=== PATIENT | male | born 1950 | race Caucasian/White ===

== ENCOUNTER 2017-05-25 06:36 | Inpatient (IN) ==
--- NOTE | 2017-05-20 12:40 | EKG Report ---
Stationary ECG Study [facility] Test Date: 05/20/2017 12:40:51 PM Pat Name: MARCY WHITE Department: Room: Gender: M Bull Driver: IRENA OBOTH : 1950 Requested by: Ran Booth Order Number: [id number] Reading MD: ROOPA VENEGAS Intervals [place] Rate: 62 P: 52 VA: 164 QRS: 32 QRSD: 95 T: 79 QT: 383 QTc: 388 Interpretive Statements SINUS RHYTHM Electronically Signed On 05-23-17 18:24:08 CDT by ROOPA VENEGAS [email or web address]
[2017-05-20 12:45] LABS: Basophils # 0.1 10*3/uL (0.0-0.2); Basophils % 0.7 % (0.0-0.8); Eosinophils # 0.2 10*3/uL (0.0-0.87); Eosinophils % 2.1 % (0.00-10.9); Hematocrit 42.8 VOL% (42.0-52.0); Hemoglobin 14.5 GM/DL (14.0-18.0); Immature Granulocytes % 0.2 %; Immature Granulocytes Absolute 0.02 #; Lymphocytes # 2.6 10*3/uL (1.4-4.0); Lymphocytes % 30.8 % (21.2-54.2); Mean Corpuscular HGB Conc 33.9 GM/DL (32-36); Mean Corpuscular Hemoglobin 29 PG (27-34); Mean Corpuscular Volume 86.6 FL (87-102); Monocytes # 0.8 10*3/uL (0.11-0.8); Monocytes % 9.3 % (1.7-12.7); Neutrophils # 4.7 10*3/uL (1.4-7.4); Neutrophils % 56.9 % (38.7-73.9); Platelet Count 186 T/CUMM (130-400); Red Blood Count 4.94 MC/CUMM (3.8-5.5); Red Cell Distribution Width 13.4 % (9.3-17.3); White Blood Count 8.3 T/CUMM (4-12)
[2017-05-20 13:11] LABS: Albumin 3.8 G/DL (3.4-5.0); Bilirubin,Total 0.5 MG/DL (0.2-1.0); Calcium 8.9 MG/DL (8.5-10.1); Osmolality,Calculated 281.4 MOS/KG (273-304); Potassium 4.2 MMOL/L (3.5-5.1); Total Protein 7.2 G/DL (6.4-8.3)
[2017-05-25] MEDS ORDERED: SODIUM CHLORIDE 0.9% 100 ML IV ONE (07:22)
[2017-05-25] MEDS ORDERED: ceFAZolin 1,000 MG VIAL ONE (07:22)
[2017-05-25] MEDS ORDERED: LACTATED RINGERS 1,000 ML IV SCH ×2 (07:30→11:30)
[2017-05-25] MEDS ORDERED: TISSUE ADHESIVE 1 EACH APPLICATOR TOP ONE (07:36)
[2017-05-25] MEDS ORDERED: HEPARIN 5,000 UNIT/1 ML VIAL ONE ×3 (07:36→11:58)
[2017-05-25] MEDS ORDERED: VANCOMYCIN 500 MG VIAL ONE ×2 (07:37→11:58)
--- NOTE | 2017-05-25 08:27 | History and Physical Update ---
History and Physical Update - History and Physical H&P was reviewed, the patient examined and there: are no changes in the patients condition since last H&P was completed.
[2017-05-25] MEDS ORDERED: ONDANSETRON 4 MG/2 ML VIAL ONE ×2 (09:01→13:44)
[2017-05-25] MEDS ORDERED: ETOMIDATE 20 MG/10 ML VIAL IV ONE ×3 (09:01→13:43)
[2017-05-25] MEDS ORDERED: ROCURONIUM 100 MG/10 ML VIAL IV ONE ×2 (09:01→11:30)
[2017-05-25] MEDS ORDERED: GLYCOPYRROLATE 0.4 MG/2 ML VIAL ONE ×2 (09:01→11:30)
[2017-05-25] MEDS ORDERED: PROTAMINE SULFATE 50 MG/5 ML VIAL IV ONE ×2 (09:01→11:30)
[2017-05-25] MEDS ORDERED: PHENYLEPHRINE 50 MG/5 ML VIAL ONE ×2 (09:01→11:30)
[2017-05-25] MEDS ORDERED: NEOSTIGMINE 10 MG/10 ML VIAL ONE ×2 (09:01→11:30)
[2017-05-25] MEDS ORDERED: PROPOFOL 200 MG/20 ML VIAL IV ONE ×2 (09:01→11:29)
[2017-05-25] MEDS ORDERED: LIDOCAINE 1% 5 ML VIAL ONE (09:01)
[2017-05-25] MEDS ORDERED: ONDANSETRON 4 MG/2 ML VIAL IV PRN ×2 (10:44→11:10)
[2017-05-25] MEDS ORDERED: NALOXONE 0.4 MG/ML VIAL IV PRN (10:44)
[2017-05-25] MEDS ORDERED: GLUCAGON 1 MG VIAL IM PRN (10:44)
[2017-05-25] MEDS ORDERED: PROMETHAZINE 25 MG/1 ML VIAL IM PRN (10:44)
[2017-05-25] MEDS ORDERED: DEXTROSE 50% 25 GM/50 ML SYRINGE IV PRN (10:44)
[2017-05-25] MEDS ORDERED: oxyCODONE/ACETAMINOPHEN 5-325 MG TABLET PO PRN ×2 (10:44)
[2017-05-25] MEDS ORDERED: DOPamine 800 MG/250 ML PREMIX IV PRN (10:44)
--- NOTE | 2017-05-25 10:55 | Operative Note ---
Date of procedure: 05/25/17 Procedure: Dr. Booth operative report Kehinde Mendes. Surgeon: Isaura Anesthesia:t arm and general endotracheal Preoperative diagnosis: High-grade left carotid stenosis with ulcerated plaque Postoperative diagnosis: Same Procedure: Left carotid endarterectomy with a bovine pericardial patch Indications for the procedure: Straight a 66-year-old man is been found to have basically bilateral high-grade stenosis of the internal carotid arteries worse on the left he is right-hand dominant I have offered left carotid endarterectomy I have explained the alternatives risks and complications and he understands and accepts Description of the procedure: After the induction of general endotracheal anesthesia the patient is placed in supine position his neck modestly extended and turned to the right left neck is prepped with ChloraPrep and draped in the usual fashion incision is made in a skin crease below the angle of the mandible and carried into the subplatysmal space dissection carried out along the anterior border of the sternocleidomastoid muscle the internal jugular vein is identified anterior facial vein is doubly ligated hemoclipped and divided I then dissected along the anterior aspect of the internal jugular vein locating the common carotid artery it is controlled with a maxi vessel loop and the patient received 5000 units of intravenous heparin dissection is continued along the common carotid past the diseased bifurcation to the more normal distal internal and external carotid arteries there is modest kinking of the internal carotid just at the end of the plaque I gently control the artery above this with a vessel loop and use Vesseloops on the external and superior thyroid as well with adequate anticoagulation Vesseloops were brought up and a longitudinal arteriotomy was made from the common carotid through the diseased bifurcation to the more normal distal internal carotid artery there is reasonable backbleeding and in-line Giordano-Inahara shunt was placed into the internal carotid artery allowed to backflush then placed in the common carotid to reestablish flow. There was indeed an ulcerated highly stenotic plaque at the origin of the internal carotid artery standard endarterectomy was carried out removing the diseased intima and media from the carotid bifurcation it feathered out very well on both internal and external carotid arteries and the common loose flaps of medial removed under loupe magnification and the endarterectomized segment was flushed with heparinized saline bovine pericardial patch is used to close the arteriotomy removing the shunt and appropriate time backflushing internal and external carotid arteries and flushing again with heparinized saline with the arteriotomy closed flow was reestablished from the common carotid into the external and then restored into the internal carotid artery. The kinking has resolved with the use of the patch the hemostasis was reasonable heparin was reversed with 25 mg of protamine there is good flow by Doppler in both internal and external carotid arteries neck is irrigated with vancomycin pledget of Surgicel was placed over the arteriotomy quarter inch Jeremías drain is placed brought out through the midportion incision incisions closed with 3-0 Monocryl on the platysma and skin clips on the skin. Blood loss estimated at 100 cc sponge needle and his counts correct and the patient was taken to recovery in stable condition Surgeon / Physician: Ran Booth Results - Labs CBC & BMP: 05/20/17 12:35 05/20/17 12:35 Discharge Plan - Discharge Medications No Action Aspirin [Ecotrin] 325 mg PO DAILY Omeprazole 20 mg PO DAILY NIFEdipine [Nifedipine ER] 30 mg PO DAILY Furosemide Tab [Lasix Tab] 20 mg PO DAILY Losartan Potassium [Cozaar] 100 mg PO DAILY Carvedilol [Coreg] 6.25 mg PO BID Atorvastatin [Lipitor] 20 mg PO DAILY - Follow Up or Referral - Forms/Instructions
[2017-05-25] MEDS ORDERED: DEXAMETHASONE 4 MG/1 ML VIAL ONE (10:59)
[2017-05-25] MEDS ORDERED: HYDROmorphone 2 MG/1 ML VIAL IV PRN (11:10)
[2017-05-25] MEDS ORDERED: DESFLURANE 1 UNIT/15 MINUTE INH ONE (11:29)
[2017-05-25] MEDS ORDERED: SODIUM CHLORIDE 0.9% 250 ML IV ONE (11:30)
[2017-05-25] MEDS ORDERED: fentaNYL 100 MCG/2 ML VIAL ONE ×2 (11:31→13:42)
[2017-05-25] MEDS ORDERED: HEPARIN 10,000 UNIT/10 ML VIAL ONE (11:31)
[2017-05-25] MEDS ORDERED: MIDAZOLAM 2 MG/2 ML VIAL ONE (11:31)
[2017-05-25] MEDS: DEXTRAN-40 10% /NS 500 ML IV SCH (11:55)
[2017-05-25] MEDS: DEXAMETHASONE INJ 10 MG in SODIUM CHLORIDE 0.9% 50 ML IV SCH (12:27)
--- NOTE | 2017-05-25 13:11 | CT Report ---
CT head/brain wo con Indication: Carotid endarterectomy Comparison: CT angiogram head dated March 30, 2017 Technique: Multiple axial tomographic images of the brain were obtained without the use of intravenous contrast. Findings: Midline structures are nondisplaced. There is no convincing evidence of acute intracranial hemorrhage . No convincing evidence of hydrocephalus. Mild global volume loss present. Mild periventricular and subcortical hypoattenuation noted which is nonspecific but consistent with chronic microvascular ischemic change. Demyelinating process and vasculitis less likely considerations. Old lacunar infarcts of bilateral caudate heads as well as the left subinsular region. Small mucous retention cyst within the right maxillary sinus. Mucosal thickening within the ethmoid air cells.. Atherosclerotic calcifications demonstrated. IMPRESSION: No acute intracranial abnormality demonstrated. Probable chronic microvascular ischemic change and volume loss. Old lacunar infarcts of bilateral caudate heads as well as the left subinsular region. The CT exam was performed using one or more of the following dose reduction techniques: Automated exposure control, adjustment of the mA and/or kV according to patient size, or use of iterative reconstruction technique. PROCEDURE INTERPRETED AT [facility] DEPARTMENT OF RADIOLOGY Final Report Signed by: Dr Ky Somers
[2017-05-25 13:27] LABS: ABG Base Excess -4.6 MMOL/L (-2.5-2.5); ABG HCO3 20.6 MMOL/L (20-26); ABG PCO2 56.1 MM HG (35-48); ABG PH 7.239 (7.35-7.45); ABG PO2 91.6 MM HG (80-95); ABG TCO2 21.3 MMOL/L (23-27)
[2017-05-25] MEDS ORDERED: NITROPRUSSIDE 50 MG/2 ML VIAL ONE ×2 (13:34→13:59)
[2017-05-25] MEDS ORDERED: NITROPRUSSIDE 50 MG/2 ML VIAL IV PRN (13:37)
[2017-05-25] MEDS ORDERED: SEVOFLURANE 1 UNIT/15 MINUTE INH ONE (13:42)
[2017-05-25] MEDS ORDERED: HYDROmorphone 2 MG/1 ML VIAL ONE (13:43)
[2017-05-25] MEDS: HYDROmorphone 2 MG/1 ML VIAL IV PRN ×4 (13:46→22:10)
--- NOTE | 2017-05-25 13:55 | XRay Report ---
XR chest 1V portable Indication: Postop SOB Comparison: Chest x-ray dated February 06, 2013 Technique: Single frontal view of the chest. Findings: Continued cardiomegaly status post sternotomy. There is a nonspecific reticular pattern throughout the bilateral lungs suspicious for interstitial pulmonary edema, interstitial pneumonia, or other interstitial lung disease. Interstitial pulmonary edema/CHF favored. Linear right midlung atelectasis/scarring. Visualized osseous and surrounding soft tissue structures appear grossly unchanged. IMPRESSION: As above. PROCEDURE INTERPRETED AT [facility] DEPARTMENT OF RADIOLOGY Final Report Signed by: Dr Ky Somers
[2017-05-25] MEDS ORDERED: NITROPRUSSIDE 100 MG in DEXTROSE 5% 246 ML IV SCH (14:00)
[2017-05-25] MEDS ORDERED: ONDANSETRON 4 MG/2 ML VIAL IV ONE (14:59)
[2017-05-25] MEDS: LACTATED RINGERS 1,000 ML IV SCH (15:16)
[2017-05-25 15:37] LABS: Apearance,Urine CLEAR (Clear); Bilirubin,Urine Negative (Negative); Blood, Urine Small mg/dL (Negative); Glucose,Urine (UA) Negative (Negative); Hyaline Casts,Urine 4 /LPF (0-3); Ketones,Urine Negative (Negative); Mucus,Urine Occasional /LPF (Occasional); Nitrite,Urine Negative (Negative); Protein,Urine Negative; RBC,Urine 13 /HPF (0-4); Urine Color Yellow (Yellow); Urine Specific Gravity 1.017 (1.001-1.035); Urine Urobilinogen < 2.0 EU/DL (0.2-1.0); WBC,Urine 2 /HPF (0-6)
[2017-05-25] MEDS ORDERED: LORazepam 2 MG/1 ML VIAL IV ONE ×2 (15:37→16:26)
[2017-05-25] MEDS ORDERED: LORazepam 2 MG/1 ML VIAL ONE (15:40)
--- NOTE | 2017-05-25 17:52 | Operative Note ---
Date of procedure: 05/25/17 Procedure: Dr. Booth operative report Kehinde Mendes. Surgeon: Leobardo Anesthesia: Michael general endotracheal Preoperative diagnosis: Post left carotid endarterectomy with evidence of left brain CVA Postoperative diagnosis: Same Procedure: Urgent return to OR with exploration of left carotid endarterectomy Indications for the procedure: Mr. Mendes is 66-year-old man had just undergone an uneventful appearing left carotid endarterectomy had been taken to recovery room in recovery room was noted to have full function of the right arm and speech not responding well vital signs were otherwise normal he had a palpable superficial temporal pulse no hematoma but I felt a reexploration of the artery urgently was indicated I discussed this with his and other family members and recommended a reexploration and a understood and agreed Description of the procedure patient return to the operating room placed in supine position under general endotracheal anesthesia the neck modestly extended and turned to the right the left neck was prepped with chlorhexidine type prepped draped in standard fashion the Wall drain was removed skin jake removed Monocryl suture and the platysma was removed and the neck was irrigated there was minimal hematoma no active bleeding the arteriotomy closure looked very good initial exam was Doppler indicated very good flow in the internal and external carotid arteries and common carotid artery I controlled the internal/external and common carotid arteries Vesseloops the patient had received 5000 units of heparin again 1 2 arteriotomy was made there was good backbleeding from the internal and external I used a #3 Magda and gently placed it into the distal internal carotid artery without difficulties approximately 10-15 cm this was brought back with a return of no debris or clot and no evidence of difficulty with the passage of the Magda catheter. Again there was good backbleeding from the internal carotid artery I then used a 3 3-1 /2 and 4 coronary dilator gently probed through the anastomosis into the distal internal carotid and found no obstructions and continued excellent back bleeding from the external carotid was likewise probed with a 3 coronary dilator and passed without difficulty with good backbleeding flushed again with heparinized saline flush the common carotid close the arteriotomy with 5-0 Prolene suture and then restored flow from the common into the external and then returned to the internal carotid artery hemostasis looked good heparin was not reversed irrigated with vancomycin and local anesthetic placed to Surgicel pledget closed over quarter inch Jeremías drain with a running 3-0 Monocryl in the platysma skin clips on the skin recurrent blood clots is 100 cc or less sponge needle and his counts are correct and the patient taken to CT scanning for urgent CT scan to determine if there was evidence of intracranial hemorrhage. Surgeon / Physician: Ran Booth Results - Labs CBC & BMP: 05/20/17 12:35 05/20/17 12:35 Discharge Plan - Discharge Medications No Action Aspirin [Ecotrin] 325 mg PO DAILY Omeprazole 20 mg PO DAILY NIFEdipine [Nifedipine ER] 30 mg PO DAILY Furosemide Tab [Lasix Tab] 20 mg PO DAILY Losartan Potassium [Cozaar] 100 mg PO DAILY Carvedilol [Coreg] 6.25 mg PO BID Atorvastatin [Lipitor] 20 mg PO DAILY - Follow Up or Referral - Forms/Instructions
--- NOTE | 2017-05-25 18:04 | Event Note ---
Reason very agitated in the initial postoperative period and has received a bit of Ativan and calmed down having some motion of the right arm but still basically aphasic and not moving the right arm well does move the right leg left arm and left hand seemingly to command. Vital signs are stable there is no sign of hematoma. I will continue the LMD 40 overnight hold off on trying aspirin and Plavix until I am certain that he is able to swallow well
[2017-05-25] MEDS ORDERED: LORazepam 2 MG/1 ML VIAL IV PRN (18:17)
[2017-05-25] MEDS: CARVEDILOL 6.25 MG TABLET PO SCH (21:56)
[2017-05-26] MEDS: LACTATED RINGERS 1,000 ML IV SCH ×2 (00:35→09:48)
[2017-05-26] MEDS: HYDROmorphone 2 MG/1 ML VIAL IV PRN ×3 (01:49→20:51)
[2017-05-26] MEDS: DEXTRAN-40 10% /NS 500 ML IV SCH ×2 (06:36→11:41)
--- NOTE | 2017-05-26 08:20 | Event Note ---
Mr. Mendes awake and alert and responding appropriately still has severe dysphasia and poor control of the right hand but is able to raise arm now voluntarily above his head moves right leg did not tolerate a clear liquid or water last night will get speech therapy and physical therapy to start working with him and have Dr. Lorenzo might evaluate and we will probably be moving to [facility] rehab in a week his vital signs are good his neck looks good I removed the [place] drain I will keep him in the intensive care unit today stopping the LMD 40 and will decrease his IV fluids
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
[2017-05-26] MEDS: CARVEDILOL 6.25 MG TABLET PO SCH ×2 (09:49→20:52)
[2017-05-26] MEDS: LOSARTAN 50 MG TABLET PO SCH (09:49)
[2017-05-26] MEDS: ASPIRIN EC 325 MG TABLET PO SCH (09:49)
[2017-05-26] MEDS: FUROSEMIDE 20 MG TABLET PO SCH (09:55)
[2017-05-26] MEDS: PANTOPRAZOLE 40 MG TABLET PO SCH (09:55)
[2017-05-26] MEDS: CLOPIDOGREL 75 MG TABLET PO SCH (09:55)
[2017-05-26] MEDS: ATORVASTATIN 20 MG TABLET PO SCH (09:55)
[2017-05-26] MEDS: DEXAMETHASONE INJ 10 MG in SODIUM CHLORIDE 0.9% 50 ML IV SCH (10:04)
--- NOTE | 2017-05-26 12:24 | Pathology Report from [facility] ---
[facility] ACCESSION # : [id number] PATIENT NAME : Marcy White ORDERING DR : MARCI BROOKE MD CLINICAL HX: Left carotid stenosis POST-OP DX: Same SPECIMEN INFO: Left carotid plaque GROSS DESCRIPTION: The specimen is received in formalin labeled with the patients name and consists of a 5.5 cm x up to 1.8 cm fragment of hyperemic yellow-dewitt endarterectomy tissue. Calcification is present within the lumen. Sectioned and submitted in one cassette following decalcification. DIAGNOSIS FOR MARCY WHITE: LEFT SARCOID PLAQUE, ANTRECTOMY: Calcified atheromatous plaque. COLLECTED DATE: 05/25/2017 [facility] REPORT DATE: 05/26/2017 ELECTRONICALLY SIGNED BY: Rambo Piña M.D. 05/26/2017 - 9:59:48 [facility]
--- NOTE | 2017-05-26 14:19 | Anesthesia Post-Op ---
Anesthesia Post OP - Post Ansesthetic Evaluation Patient seen in post op: Yes Resp: within normal limits CV: within normal limits Mental: within normal limits Temp: within normal limits Oghy-Dy-Qlxhbbesn: within normal limits Nausea and Vomiting: within normal limits Pain: within normal limits
--- NOTE | 2017-05-26 15:25 | Event Note ---
Mr. 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 I would like Dr. Lorenzo might to evaluate and determine appropriateness for moving to [facility] rehab.
--- NOTE | 2017-05-26 15:27 | Event Note ---
Note Mr. Mendes is not getting his p.o. meds at this time due to difficulties with swallowing but his blood pressure is under good control and going to start a low dose Lovenox until he can tolerate p.o. intake aspirin and Plavix
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
[2017-05-26] MEDS: ENOXAPARIN 40 MG/0.4 ML SYRINGE SUBCUT SCH (16:33)
--- NOTE | 2017-05-26 20:13 | ECHO Report ---
Kehinde Mendes Exam Date: 05/26/2017 11:48 Referring Physician: Technologist: Tiffanie Ash RDCS Age: 66 Ht (in): 66 Wt (lb): 241 Gender: M Exam Location: [facility] Echo Indications: CAD with previous CABG, s/p Left carotid endarterectomy, Periprocedural CVA, PAD, Essential (primary) hypertension, Dyslipidemia, Aphasia following unspecified cerebrovascular disease BP: 156 / 65 HR: 73 Rhythm: Sinus Technical Quality: IMPRESSIONS Normal left ventricular cavity size. Mild concentric left ventricular hypertrophy. Left ventricular ejection fraction is estimated at 60 %. Grade 2 diastolic dysfunction. Mild biatrial enlargement. Morphologically normal mitral valve. Mild mitral annular calcification. Trace regurgitation. Mild aortic valve sclerosis, without stenosis or insufficiency. MEASUREMENTS (Male / Female) Normal Values 2D ECHO LV Diastolic Diameter PLAX 4.7 cm 4.2 - 5.9 / 3.9 - 5.3 cm LV Systolic Diameter PLAX 3.1 cm LV Fractional Shortening PLAX 34.3 % IVS Diastolic Thickness 1.2 cm 0.6 - 1.0 / 0.6 - 0.9 cm LVPW Diastolic Thickness 1.2 cm 0.6 - 1.0 / 0.6 - 0.9 cm RV Internal Dim ED PLAX 3.9 cm Aortic Root Diameter 3.6 cm LA Systolic Diameter LX 4.4 cm 3.0 - 4.0 / 2.7 - 3.8 cm DOPPLER TR Peak Velocity 280.0 cm/s TR Peak Gradient 31.4 mmHg FINDINGS Left Ventricle Normal left ventricular cavity size. Mild concentric left ventricular hypertrophy. Left ventricular ejection fraction is estimated at 60 %. Grade 2 diastolic dysfunction. Right Ventricle The right ventricle is normal in size and function. Right Atrium The right atrium is mildly enlarged. Left Atrium The left atrium is mildly enlarged. Mitral Valve Morphologically normal mitral valve. Mild mitral annular calcification. Trace regurgitation. Aortic Valve Mild aortic valve sclerosis, without stenosis or insufficiency. Tricuspid Valve Morphologically normal tricuspid valve. Mild tricuspid valve regurgitation. Tricuspid regurgitation velocities suggest a PAP of 31 mmHg plus right atrial pressure. Pulmonic Valve Morphologically normal pulmonic valve without significant stenosis. There is no pulmonic regurgitation. Pericardium Normal pericardium without effusion. Aorta Normal ascending aorta dimension. Leno Horne (Electronically Signed) Final Date: 26 May 2017 20:11
[2017-05-27] MEDS: HYDROmorphone 2 MG/1 ML VIAL IV PRN (06:39)
--- NOTE | 2017-05-27 08:10 | EKG Report ---
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
--- NOTE | 2017-05-27 08:16 | Event Note ---
Mr. Elias continues to show slow progress with some efforts at speaking this morning swallowing. Well this got more strength in upper arm with continued decreased function in the right hand. He is ready for transfer upstairs and were working for transfer to the [facility] rehab unit. His blood pressure is coming up but we should be able to control that was we will resume his oral antihypertensives. Neck looks good with no hematoma
[2017-05-27] MEDS: FUROSEMIDE 20 MG TABLET PO SCH (09:24)
[2017-05-27] MEDS: LOSARTAN 50 MG TABLET PO SCH (09:24)
[2017-05-27] MEDS: DEXAMETHASONE INJ 10 MG in SODIUM CHLORIDE 0.9% 50 ML IV SCH (09:24)
[2017-05-27] MEDS: CLOPIDOGREL 75 MG TABLET PO SCH (09:25)
[2017-05-27] MEDS: PANTOPRAZOLE 40 MG TABLET PO SCH (09:25)
[2017-05-27] MEDS: ATORVASTATIN 20 MG TABLET PO SCH (09:25)
[2017-05-27] MEDS: CARVEDILOL 6.25 MG TABLET PO SCH (09:25)
[2017-05-27] MEDS: ASPIRIN EC 325 MG TABLET PO SCH (09:26)
--- NOTE | 2017-05-27 12:00 | Discharge Summary ---
Discharge Plan - Discharge Data Disposition: Disch/Xfer-Ip Rehab Fac Condition at Discharge: Guarded Discharge Diet: other Activity: as per physical therapy Hygiene: may shower Weight Bearing at Discharge: weight bear as tolerated Driving: not until seen by doctor Contact your physician if you experience:: Redness or swelling, Bleeding - Discharge Medications New Clopidogrel [Plavix] 75 mg PO DAILY tablet Enoxaparin [Lovenox] 40 mg SUBCUT Q24H syringe oxyCODONE/ACETAMINOPHEN 5-325 [Percocet 5-325] 1 tablet PO Q6H PRN tablet PRN Reason: Pain Mild To Moderate (1-7) Aspirin [Ecotrin] 81 mg PO DAILY #30 tablet. HYDROmorphone INJ [Dilaudid Inj] 0.5 mg IV Q2H PRN vial PRN Reason: Pain Moderate To Severe (4-10) Continue Omeprazole 20 mg PO DAILY NIFEdipine [Nifedipine ER] 30 mg PO DAILY Furosemide Tab [Lasix Tab] 20 mg PO DAILY Losartan Potassium [Cozaar] 100 mg PO DAILY Carvedilol [Coreg] 6.25 mg PO BID Atorvastatin [Lipitor] 20 mg PO DAILY Discontinued Aspirin [Ecotrin] 325 mg PO DAILY - Follow Up or Referral Follow Up: Ran Booth MD [Physician] - 1 Week - Forms/Instructions Exam - Constitutional Vitals: Period Temp Pulse Resp BP Sys/Clark Pulse Ox Last 24 Hr 97.7 F-99.2 F 47-89 11-20 93-164/50-87 90-96 DS: Provider Date of admission: 05/25/17 06:36 Primary care physician: Qasim Levin DO Attending physician on admission: Ran Booth MD Consults: 05/25/17 18:01 Consult to Physician [CONS] Routine Comment: patient known to you Consulting Provider: Aguilar De Leon 05/25/17 18:02 Consult to Physician [CONS] Routine Comment: acute cva post carotid endarterectomy Consulting Provider: Isaiah Pinon Consulting Provider Notified: Yes Consult to Specialist Group: Neurology Person Notified: JOSE Date Notified: 05/26/17 Time Notified: 12:00 05/26/17 08:18 Consult to Physical Therapy [CONS] Routine Reason for Physical Therapy: Evaluate and Treat 05/26/17 16:16 Consult to Case Mgmt/Social Srvs [CONS] Routine Reason for Case Mgmt/Social Srvs: Rehab 05/26/17 16:20 OT [Consult to Occupational Therapy] [CONS] Routine Reason for Occupational Therapy: Evaluate and Treat Weakness Other Consult Comment: right side weakness r/t stroke Discharging clinician: Ran Booth MD
--- NOTE | 2017-05-27 15:34 | Cardiology Progress Note ---
Chandrakant Wooten Lesley, MARIAM, am scribing for, and in the presence of, Leno Horne MD 15:34. Assessment and Plan - Time spent with patient Time spent with patient: Greater than 30 minutes (1) CAD (coronary artery disease) Status: Chronic Assessment and plan: ASSESSMENT/PLAN: 1. S/P LEFT CAROTID ENDARTERECTOMY RELATED TO PAD - incision healing well without dehiscence or drainage, mild edema. Continue aspirin, Plavix, statin 2. CVA -periprocedural, likely related to vascular issue. Cardiac embolization unlikely, no A. fib on telemetry. 3. KNOWN CAD - asymptomatic lani current treatment 4. HYPERTENSION - Procardia 30 mg being dosed every evening. 5. DYSLIPIDEMIA - LDL 108, March 03, 2017. Continue lipid-lowering agent CC: Ran Booth MD Current Visit: Yes (2) CVA (cerebral vascular accident) Status: Acute Assessment and plan: SEE PLAN OF CARE LISTED BELOW Current Visit: Yes (3) Hypertension Status: Chronic Assessment and plan: SEE PLAN OF CARE LISTED BELOW Current Visit: Yes (4) Dyslipidemia Status: Chronic Assessment and plan: SEE PLAN OF CARE LISTED BELOW Current Visit: Yes (5) S/P carotid endarterectomy Status: Acute Assessment and plan: SEE PLAN OF CARE LISTED BELOW Current Visit: Yes Cardiology - PN: Subj Interval history: EMERGENCY MANAGEMENT SPECIALIST: DR. DE LEON PCP: [place] Patient is being seen in the ICU. He is aphasic therefore the majority of this information is taken from medical records and staff. Mr. Mendes, 66WM, routinely followed by Dr. De Leon. Last seen in cardiology clinic February 19, 2017. Risk factors include: known CAD, (S/P CABG x 3, SVG - LAD, SVG - OM1, SVG - OM2 June 10, 2011), hypertension, dyslipidemia, obesity, PVD. Presented to [facility] for elective left carotid endarterectomy May 25, 2017 to be performed by Dr. Booth. He underwent said procedure without complication and was returned to the OR after experiencing aphasia and right arm hemiparesis postoperatively. Emergently, he was returned to the OR for re- exploration of the left carotid system. He tolerated that procedure well and was returned to the ICU. CT of head reveals nothing acute. Dr. Pinon has been consulted. CABG AND [facility] MAY 2011 HAVE BEEN SCANNED IN UNDER "EXTERNAL RECORDS." May 27, 2017: This morning, patient follows commands appropriately, his son is at the bed. Paralysis noted in the right hand, as well as expressive aphasia. Systolic blood pressures averaging 150 to 170s, no arrhythmia noted. The patient has past swallow evaluation, and is diet has been advanced as well as oral medications restarted. Plavix, Atorvastatin, beta-miguel, ARB and calcium channel miguel have been restarted. The plan is to transfer the patient to [facility] when a bed is available. I recommend restarting Procardia 30 mg p.o. each evening. I will further discuss with Dr. Horne and await additional recommendations. Exam (Progress Note) - Constitutional Vitals: Period Temp Pulse Resp BP Sys/Clark Pulse Ox Last 24 Hr 97.7 F-99.2 F 47-89 11-20 93-171/50-97 90-96 Exam: General: Appears well with no apparent distress. Pleasant and cooperative. Appears comfortable. HEENT: PERRL, normocephalic, atraumatic. Mucous membranes moist. No jaundice noted. Conjunctiva moist and clear, sclerae anicteric. Neck: Unable to assess, dressing intact on the left. Cardiac: Regular rate and rhythm. No murmur rub or gallop. PMI is nondisplaced. Lungs: Clear to auscultation without accessory muscle use to assist the respiratory pattern. Not requiring oxygen. Abdomen: Soft, bowel sounds normoactive. Nontender and nondistended. No abdominal bruit or thrill noted. No masses noted. Musculoskeletal: No fluid collection. Decreased range of motion is noted. Extremities: No clubbing, cyanosis noted. No edema noted. Upper extremity pulses 2+. Lower extremity pulses 2+. Capillary refill less than 3 seconds. Skin: No unusual lesions or rashes. No skin breakdown appreciated. Neuro: Awake, alert and oriented 2-3, answers questions appropriately by nodding head, expressive aphasia present. Moves all extremities well, except right hand paralysis noted. No essential tremor is appreciated. Result/EKG - Labs CBC & BMP: 05/20/17 12:35 05/20/17 12:35 Lab Results: I have reviewed the past 24 hour labs - EKG EKG results: interpreted by me, sinus rhythm Quality Measures - VTE Contraindication to Pharmacological VTE Prophylaxis: High Risk of Bleeding - Stroke Onset of Symptoms Date: 05/25/17 Onset of Symptoms Time: 11:00 Presenting Symptoms: Right hemiparesis Symptom Onset Unknown: No Specialty Discharge - Follow Up or Referrals Follow up with: Ran Booth MD [Physician] - 1 Week Coleen Wooten Attila, MD, personally performed the services described in this documentation, ascribed by Kelly Stallings NP in my presence, and it is both accurate and complete 534 .
[2017-05-27 15:39] VITALS: BP 167/100
[2017-05-27] MEDS ORDERED: ASPIRIN EC 81 MG TABLET PO SCH (15:42)
[2017-05-27] MEDS: ENOXAPARIN 40 MG/0.4 ML SYRINGE SUBCUT SCH (15:46)
== END 2017-05-27 18:32 | DRG 38 ==
LOC: N.SDSINP 06:36 → N.ICU 11:26
PROVIDERS: ADMIT Surgery; ATTEND Surgery

== ENCOUNTER 2018-08-15 05:39 | Inpatient (IN) ==
[2018-08-08 09:32] LABS: Basophils # 0.1 10*3/uL (0.0-0.2); Basophils % 1.1 % (0.0-0.8); Eosinophils # 0.2 10*3/uL (0.0-0.87); Hematocrit 42.6 VOL% (42.0-52.0); Immature Granulocytes % 0.3 %; Immature Granulocytes Absolute 0.02 #; Lymphocytes # 1.9 10*3/uL (1.4-4.0); Lymphocytes % 24.8 % (21.2-54.2); Mean Corpuscular HGB Conc 32.9 GM/DL (32-36); Mean Corpuscular Hemoglobin 29 PG (27-34); Mean Corpuscular Volume 87.8 FL (87-102); Mean Platelet Volume 9.9 FL (9.6-12.0); Monocytes # 0.7 10*3/uL (0.11-0.8); Monocytes % 9.7 % (1.7-12.7); Neutrophils # 4.7 10*3/uL (1.4-7.4); Neutrophils % 62.1 % (38.7-73.9); Platelet Count 200 T/CUMM (130-400); Red Blood Count 4.85 MC/CUMM (3.8-5.5); White Blood Count 7.5 T/CUMM (4-12)
[2018-08-08 09:38] LABS: Apearance,Urine CLEAR (Clear); Bilirubin,Urine Negative (Negative); Blood, Urine Negative (Negative); Glucose,Urine (UA) Negative (Negative); Ketones,Urine Negative (Negative); Mucus,Urine Occasional /LPF (Occasional); Nitrite,Urine Negative (Negative); Protein,Urine 30 MG/DL; RBC,Urine <1 /HPF (0-4); Squamous Epithelial Cell,Urine Occasional /HPF (0-10); Urine Color Straw (Yellow); Urine Specific Gravity 1.009 (1.001-1.035); Urine Urobilinogen < 2.0 EU/DL (0.2-1.0); WBC,Urine <1 /HPF (0-6)
[2018-08-08 09:42] LABS: INR 0.9; PT Patient Result 9.5 SECS; Partial Thromboplastin Time 25.2 SECS (0-40)
[2018-08-08 10:07] LABS: Albumin 3.6 G/DL (3.4-5.0); Bilirubin,Total 0.5 MG/DL (0.2-1.0); Calcium 8.8 MG/DL (8.5-10.1); Osmolality,Calculated 281.4 MOS/KG (273-304); Potassium 3.9 MMOL/L (3.5-5.1); Total Protein 7.3 G/DL (6.4-8.3)
[2018-08-15] MEDS ORDERED: VANCOMYCIN INJ 1,000 MG in SODIUM CHLORIDE 0.9% 250 ML IV ONE (06:00)
[2018-08-15] MEDS ORDERED: ceFAZolin 1,000 MG in SYRINGE 1 EACH IV ONE (06:00)
[2018-08-15] MEDS ORDERED: VANCOMYCIN 1,000 MG VIAL ONE (06:01)
[2018-08-15] MEDS ORDERED: ceFAZolin 1,000 MG VIAL ONE (06:01)
[2018-08-15] MEDS: LACTATED RINGERS 1,000 ML IV SCH ×2 (06:34→08:16)
[2018-08-15] MEDS ORDERED: ROPIVACAINE 0.5% 30 ML VIAL ONE (06:42)
[2018-08-15] MEDS ORDERED: LACTULOSE 20 GM/30 ML UDCUP PO PRN (07:07)
[2018-08-15] MEDS ORDERED: diphenhydrAMINE CAP 25 MG CAPSULE PO PRN (07:07)
[2018-08-15] MEDS ORDERED: MAGNESIUM HYDROXIDE SUSP 30 ML UDCUP PO PRN (07:07)
[2018-08-15] MEDS ORDERED: TEMAZEPAM 7.5 MG CAPSULE PO PRN (07:07)
[2018-08-15] MEDS ORDERED: PROMETHAZINE 25 MG/1 ML VIAL IM PRN (07:07)
[2018-08-15] MEDS ORDERED: NALOXONE 0.4 MG/ML VIAL IV PRN (07:07)
[2018-08-15] MEDS ORDERED: BISACODYL 10 MG SUPP RECTAL PRN (07:07)
[2018-08-15] MEDS ORDERED: ONDANSETRON 4 MG/2 ML VIAL IV PRN ×2 (07:07→09:37)
[2018-08-15] MEDS ORDERED: MORPHINE 4 MG/1 ML VIAL IV PRN (07:07)
[2018-08-15] MEDS ORDERED: ASPIRIN EC 81 MG TABLET PO SCH (09:00)
[2018-08-15] MEDS ORDERED: PROPOFOL 200 MG/20 ML VIAL IV ONE (09:26)
[2018-08-15] MEDS ORDERED: ONDANSETRON 4 MG/2 ML VIAL ONE (09:26)
[2018-08-15] MEDS ORDERED: fentaNYL 100 MCG/2 ML VIAL ONE (09:26)
[2018-08-15] MEDS ORDERED: MIDAZOLAM 2 MG/2 ML VIAL ONE (09:26)
[2018-08-15] MEDS ORDERED: SEVOFLURANE 1 UNIT/15 MINUTE INH ONE (09:26)
[2018-08-15] MEDS ORDERED: LACTATED RINGERS 1,000 ML IV ONE (09:27)
[2018-08-15] MEDS ORDERED: SUCCINYLCHOLINE 200 MG/10 ML VIAL ONE (09:27)
[2018-08-15] MEDS ORDERED: PHENYLEPHRINE 10 MG/1 ML VIAL IV ONE (09:27)
[2018-08-15] MEDS ORDERED: ROCURONIUM 100 MG/10 ML VIAL IV ONE (09:27)
[2018-08-15] MEDS ORDERED: PHENYLEPHRINE 1 MG/10 ML SYRINGE IV ONE (09:27)
[2018-08-15] MEDS ORDERED: SODIUM CHLORIDE 0.9% 200 ML IV ONE (09:27)
[2018-08-15] MEDS ORDERED: HYDROmorphone 2 MG/1 ML VIAL IV PRN (09:37)
[2018-08-15] MEDS ORDERED: MORPHINE PCA 30 MG/30 ML SYRINGE IV ONE (09:38)
[2018-08-15 09:39] LABS: Apearance,Urine CLEAR (Clear); Bilirubin,Urine Negative (Negative); Blood, Urine Negative (Negative); Glucose,Urine (UA) Negative (Negative); Ketones,Urine Negative (Negative); Mucus,Urine Occasional /LPF (Occasional); Nitrite,Urine Negative (Negative); Protein,Urine 100 MG/DL; RBC,Urine 1 /HPF (0-4); Squamous Epithelial Cell,Urine Occasional /HPF (0-10); Urine Color Yellow (Yellow); Urine Specific Gravity 1.017 (1.001-1.035); Urine Urobilinogen < 2.0 EU/DL (0.2-1.0); WBC,Urine 1 /HPF (0-6)
[2018-08-15] MEDS: MORPHINE PCA 30 MG/30 ML SYRINGE IV SCH (09:45)
[2018-08-15] MEDS ORDERED: INFLUENZA VIRUS VACCINE 0.5 ML SYRINGE IM ONE (11:00)
[2018-08-15] MEDS: ASPIRIN EC 325 MG TABLET PO SCH (11:11)
[2018-08-15] MEDS: DOCUSATE SODIUM 100 MG CAPSULE PO SCH ×2 (11:12→21:07)
[2018-08-15] MEDS: CARVEDILOL 6.25 MG TABLET PO SCH (11:12)
[2018-08-15] MEDS: CLOPIDOGREL 75 MG TABLET PO SCH (11:12)
[2018-08-15] MEDS: ATORVASTATIN 20 MG TABLET PO SCH (11:12)
[2018-08-15] MEDS: FUROSEMIDE 20 MG TABLET PO SCH (11:12)
[2018-08-15] MEDS: PANTOPRAZOLE 40 MG TABLET PO SCH (11:13)
[2018-08-15] MEDS: EZETIMIBE 10 MG TABLET PO SCH (11:13)
[2018-08-15] MEDS: ceFAZolin 2,000 MG in PREMIX 1 EACH IV SCH ×2 (12:59→21:15)
[2018-08-15] MEDS: FONDAPARINUX 2.5 MG/0.5 ML SYRINGE SUBCUT SCH (21:07)
[2018-08-16 05:45] LABS: Basophils % 0.4 % (0.0-0.8); Eosinophils # 0.1 10*3/uL (0.0-0.87); Eosinophils % 0.7 % (0.00-10.9); Hematocrit 35.4 VOL% (42.0-52.0); Hemoglobin 11.8 GM/DL (14.0-18.0); Immature Granulocytes % 0.4 %; Immature Granulocytes Absolute 0.04 #; Lymphocytes # 1.9 10*3/uL (1.4-4.0); Lymphocytes % 17.1 % (21.2-54.2); Mean Corpuscular HGB Conc 33.3 GM/DL (32-36); Mean Corpuscular Hemoglobin 30 PG (27-34); Mean Corpuscular Volume 89.2 FL (87-102); Mean Platelet Volume 10.1 FL (9.6-12.0); Monocytes # 1.4 10*3/uL (0.11-0.8); Monocytes % 12.7 % (1.7-12.7); Neutrophils # 7.5 10*3/uL (1.4-7.4); Neutrophils % 68.7 % (38.7-73.9); Platelet Count 144 T/CUMM (130-400); Red Blood Count 3.97 MC/CUMM (3.8-5.5); Red Cell Distribution Width 14.8 % (9.3-17.3); White Blood Count 10.9 T/CUMM (4-12)
[2018-08-16] MEDS: LACTATED RINGERS 1,000 ML IV SCH (06:07)
[2018-08-16 06:16] LABS: Osmolality,Calculated 281.4 MOS/KG (273-304); Potassium 4.3 MMOL/L (3.5-5.1)
[2018-08-16] MEDS: FUROSEMIDE 20 MG TABLET PO SCH (08:38)
[2018-08-16] MEDS: CLOPIDOGREL 75 MG TABLET PO SCH (08:38)
[2018-08-16] MEDS: DOCUSATE SODIUM 100 MG CAPSULE PO SCH ×2 (08:38→20:13)
[2018-08-16] MEDS: ASPIRIN EC 325 MG TABLET PO SCH (08:38)
[2018-08-16] MEDS: EZETIMIBE 10 MG TABLET PO SCH (08:39)
[2018-08-16] MEDS: PANTOPRAZOLE 40 MG TABLET PO SCH (08:39)
[2018-08-16] MEDS: ATORVASTATIN 20 MG TABLET PO SCH (08:39)
[2018-08-16] MEDS: CARVEDILOL 6.25 MG TABLET PO SCH (08:40)
[2018-08-16] MEDS: MORPHINE PCA 30 MG/30 ML SYRINGE IV SCH (10:28)
[2018-08-16] MEDS: FONDAPARINUX 2.5 MG/0.5 ML SYRINGE SUBCUT SCH (20:12)
[2018-08-17] MEDS: FUROSEMIDE 20 MG TABLET PO SCH (09:31)
[2018-08-17] MEDS: PANTOPRAZOLE 40 MG TABLET PO SCH (09:31)
[2018-08-17] MEDS: ATORVASTATIN 20 MG TABLET PO SCH (09:31)
[2018-08-17] MEDS: EZETIMIBE 10 MG TABLET PO SCH (09:31)
[2018-08-17] MEDS: DOCUSATE SODIUM 100 MG CAPSULE PO SCH ×2 (09:31→20:48)
[2018-08-17] MEDS: CARVEDILOL 6.25 MG TABLET PO SCH (09:31)
[2018-08-17] MEDS: ASPIRIN EC 325 MG TABLET PO SCH (09:32)
[2018-08-17] MEDS: CLOPIDOGREL 75 MG TABLET PO SCH (09:32)
[2018-08-17] MEDS: FONDAPARINUX 2.5 MG/0.5 ML SYRINGE SUBCUT SCH (20:47)
[2018-08-18 07:57] VITALS: BP 123/68
[2018-08-18] MEDS: CLOPIDOGREL 75 MG TABLET PO SCH (09:07)
[2018-08-18] MEDS: PANTOPRAZOLE 40 MG TABLET PO SCH (09:07)
[2018-08-18] MEDS: CARVEDILOL 6.25 MG TABLET PO SCH (09:07)
[2018-08-18] MEDS: ATORVASTATIN 20 MG TABLET PO SCH (09:07)
[2018-08-18] MEDS: EZETIMIBE 10 MG TABLET PO SCH (09:07)
[2018-08-18] MEDS: ASPIRIN EC 325 MG TABLET PO SCH (09:07)
[2018-08-18] MEDS: FUROSEMIDE 20 MG TABLET PO SCH (09:07)
[2018-08-18] MEDS: DOCUSATE SODIUM 100 MG CAPSULE PO SCH (09:07)
== END 2018-08-18 10:26 | disposition home health service (06) | DRG 470 ==
LOC: N.SDSINP 05:39
PROVIDERS: ADMIT Orthopaedic Surgery; ATTEND Orthopaedic Surgery

== ENCOUNTER 2018-11-28 10:36 | Inpatient (IN) ==
[2018-11-28 11:24] LABS: Basophils # 0.1 10*3/uL (0.0-0.2); Basophils % 0.7 % (0.0-0.8); Eosinophils # 0.2 10*3/uL (0.0-0.87); Eosinophils % 2.1 % (0.00-10.9); Hematocrit 40.2 VOL% (42.0-52.0); Immature Granulocytes % 0.2 %; Immature Granulocytes Absolute 0.02 #; Lymphocytes # 1.8 10*3/uL (1.4-4.0); Lymphocytes % 20.8 % (21.2-54.2); Mean Corpuscular HGB Conc 32.3 GM/DL (32-36); Mean Corpuscular Hemoglobin 27 PG (27-34); Mean Corpuscular Volume 83.9 FL (87-102); Mean Platelet Volume 10.2 FL (9.6-12.0); Monocytes % 11.3 % (1.7-12.7); Neutrophils # 5.7 10*3/uL (1.4-7.4); Neutrophils % 64.9 % (38.7-73.9); Platelet Count 193 T/CUMM (130-400); Red Blood Count 4.79 MC/CUMM (3.8-5.5); Red Cell Distribution Width 14.7 % (9.3-17.3); White Blood Count 8.7 T/CUMM (4-12)
[2018-11-28 11:30] LABS: Apearance,Urine CLEAR (Clear); Bilirubin,Urine Negative (Negative); Blood, Urine Negative (Negative); Glucose,Urine (UA) Negative (Negative); INR 0.9; Ketones,Urine Negative (Negative); Mucus,Urine Occasional /LPF (Occasional); Nitrite,Urine Negative (Negative); PT Patient Result 9.6 SECS; Protein,Urine Negative; RBC,Urine 1 /HPF (0-4); Urine Color Straw (Yellow); Urine Specific Gravity 1.008 (1.001-1.035); Urine Urobilinogen < 2.0 EU/DL (0.2-1.0); WBC,Urine <1 /HPF (0-6)
[2018-11-28 11:42] LABS: Albumin 3.4 G/DL (3.4-5.0); Bilirubin,Total 0.4 MG/DL (0.2-1.0); Calcium 8.9 MG/DL (8.5-10.1); Osmolality,Calculated 281.3 MOS/KG (273-304); Potassium 3.6 MMOL/L (3.5-5.1); Total Protein 6.9 G/DL (6.4-8.3)
[2018-11-28 11:44] LABS: Troponin I < 0.015 NG/ML (0.00-0.045)
[2018-11-28 11:48] LABS: Barbiturates Screen,Urine Negative (Negative); Benzodiazepines Screen,Urine Negative (Negative); Cannabinoid Screen,Urine Negative (Negative); Opiate Screen,Urine Negative (Negative); Phencyclidine Screen,Urine Negative (Negative)
[2018-11-28] MEDS ORDERED: CEFTAROLINE 600 MG in SODIUM CHLORIDE 0.9% 100 ML IV STA (11:54)
[2018-11-28] MEDS ORDERED: ACETAMINOPHEN 325 MG TABLET PO PRN (14:50)
[2018-11-28] MEDS ORDERED: ONDANSETRON 4 MG/2 ML VIAL IV PRN (14:50)
[2018-11-28] MEDS: ENOXAPARIN 40 MG/0.4 ML SYRINGE SUBCUT SCH (17:03)
[2018-11-28] MEDS: CLINDAMYCIN INJ 600 MG in PREMIX 1 EACH IV SCH (17:03)
[2018-11-28] MEDS: CARVEDILOL 6.25 MG TABLET PO SCH (22:10)
[2018-11-29] MEDS: CLINDAMYCIN INJ 600 MG in PREMIX 1 EACH IV SCH ×3 (02:01→16:47)
[2018-11-29 05:16] LABS: Basophils % 0.7 % (0.0-0.8); Eosinophils # 0.2 10*3/uL (0.0-0.87); Eosinophils % 2.6 % (0.00-10.9); Hematocrit 37.1 VOL% (42.0-52.0); Hemoglobin 11.8 GM/DL (14.0-18.0); Immature Granulocytes % 0.2 %; Immature Granulocytes Absolute 0.01 #; Lymphocytes # 1.7 10*3/uL (1.4-4.0); Lymphocytes % 27.3 % (21.2-54.2); Mean Corpuscular HGB Conc 31.8 GM/DL (32-36); Mean Corpuscular Hemoglobin 27 PG (27-34); Mean Corpuscular Volume 84.7 FL (87-102); Mean Platelet Volume 10.6 FL (9.6-12.0); Monocytes # 0.7 10*3/uL (0.11-0.8); Monocytes % 11.2 % (1.7-12.7); Neutrophils # 3.5 10*3/uL (1.4-7.4); Platelet Count 207 T/CUMM (130-400); Red Blood Count 4.38 MC/CUMM (3.8-5.5); Red Cell Distribution Width 14.6 % (9.3-17.3); White Blood Count 6.1 T/CUMM (4-12)
[2018-11-29 05:41] LABS: Calcium 8.4 MG/DL (8.5-10.1); Potassium 3.1 MMOL/L (3.5-5.1); Risk Ratio 2.54; Thyroid Stimulating Hormone 0.693 uIU/ml (0.358-3.74); VLDL CHOLESTEROL 27.8 MG/DL
[2018-11-29] MEDS: ATORVASTATIN 20 MG TABLET PO SCH (08:20)
[2018-11-29] MEDS: CARVEDILOL 6.25 MG TABLET PO SCH ×2 (08:20→21:40)
[2018-11-29] MEDS: FUROSEMIDE 40 MG TABLET PO SCH (08:20)
[2018-11-29] MEDS: ASPIRIN EC 325 MG TABLET PO SCH (08:20)
[2018-11-29] MEDS: CLOPIDOGREL 75 MG TABLET PO SCH (08:20)
[2018-11-29] MEDS: PANTOPRAZOLE 40 MG TABLET PO SCH (08:20)
[2018-11-29] MEDS: EZETIMIBE 10 MG TABLET PO SCH (08:20)
[2018-11-29] MEDS: POTASSIUM CHLORIDE 20 MEQ TABLET PO PRN ×4 (12:35→17:48)
[2018-11-29] MEDS: ENOXAPARIN 40 MG/0.4 ML SYRINGE SUBCUT SCH (16:47)
[2018-11-30] MEDS: POTASSIUM CHLORIDE 20 MEQ TABLET PO PRN ×3 (01:03→05:11)
[2018-11-30] MEDS: CLINDAMYCIN INJ 600 MG in PREMIX 1 EACH IV SCH ×3 (01:05→16:58)
[2018-11-30 06:22] LABS: Basophils # 0.1 10*3/uL (0.0-0.2); Basophils % 0.9 % (0.0-0.8); Eosinophils # 0.2 10*3/uL (0.0-0.87); Eosinophils % 3.1 % (0.00-10.9); Hematocrit 39.6 VOL% (42.0-52.0); Hemoglobin 12.5 GM/DL (14.0-18.0); Immature Granulocytes % 0.4 %; Immature Granulocytes Absolute 0.03 #; Lymphocytes # 1.9 10*3/uL (1.4-4.0); Lymphocytes % 27.7 % (21.2-54.2); Mean Corpuscular HGB Conc 31.6 GM/DL (32-36); Mean Corpuscular Hemoglobin 27 PG (27-34); Mean Corpuscular Volume 84.6 FL (87-102); Mean Platelet Volume 10.4 FL (9.6-12.0); Monocytes # 0.7 10*3/uL (0.11-0.8); Monocytes % 10.8 % (1.7-12.7); Neutrophils # 3.8 10*3/uL (1.4-7.4); Neutrophils % 57.1 % (38.7-73.9); Platelet Count 219 T/CUMM (130-400); Red Blood Count 4.68 MC/CUMM (3.8-5.5); Red Cell Distribution Width 14.7 % (9.3-17.3); White Blood Count 6.7 T/CUMM (4-12)
[2018-11-30 06:45] LABS: Calcium 8.7 MG/DL (8.5-10.1); Osmolality,Calculated 283.1 MOS/KG (273-304); Potassium 3.8 MMOL/L (3.5-5.1)
[2018-11-30] MEDS: FUROSEMIDE 40 MG TABLET PO SCH (10:08)
[2018-11-30] MEDS: EZETIMIBE 10 MG TABLET PO SCH (10:08)
[2018-11-30] MEDS: ASPIRIN EC 325 MG TABLET PO SCH (10:08)
[2018-11-30] MEDS: PANTOPRAZOLE 40 MG TABLET PO SCH (10:09)
[2018-11-30] MEDS: CLOPIDOGREL 75 MG TABLET PO SCH (10:09)
[2018-11-30] MEDS: CARVEDILOL 6.25 MG TABLET PO SCH ×2 (10:09→21:39)
[2018-11-30] MEDS: ATORVASTATIN 20 MG TABLET PO SCH (10:09)
[2018-11-30] MEDS: ENOXAPARIN 40 MG/0.4 ML SYRINGE SUBCUT SCH (17:09)
[2018-12-01] MEDS: CLINDAMYCIN INJ 600 MG in PREMIX 1 EACH IV SCH (02:12)
[2018-12-01 06:49] LABS: Basophils # 0.1 10*3/uL (0.0-0.2); Basophils % 0.7 % (0.0-0.8); Eosinophils # 0.2 10*3/uL (0.0-0.87); Eosinophils % 2.4 % (0.00-10.9); Hemoglobin 12.6 GM/DL (14.0-18.0); Immature Granulocytes % 0.4 %; Immature Granulocytes Absolute 0.03 #; Lymphocytes # 2.2 10*3/uL (1.4-4.0); Lymphocytes % 28.9 % (21.2-54.2); Mean Corpuscular HGB Conc 31.5 GM/DL (32-36); Mean Corpuscular Hemoglobin 27 PG (27-34); Mean Corpuscular Volume 84.9 FL (87-102); Mean Platelet Volume 10.5 FL (9.6-12.0); Monocytes # 0.8 10*3/uL (0.11-0.8); Monocytes % 10.3 % (1.7-12.7); Neutrophils # 4.3 10*3/uL (1.4-7.4); Neutrophils % 57.3 % (38.7-73.9); Platelet Count 227 T/CUMM (130-400); Red Blood Count 4.71 MC/CUMM (3.8-5.5); Red Cell Distribution Width 14.8 % (9.3-17.3); White Blood Count 7.6 T/CUMM (4-12)
[2018-12-01 07:13] LABS: Calcium 8.9 MG/DL (8.5-10.1); Osmolality,Calculated 281.3 MOS/KG (273-304); Potassium 3.9 MMOL/L (3.5-5.1)
[2018-12-01] MEDS: CLOPIDOGREL 75 MG TABLET PO SCH (09:34)
[2018-12-01] MEDS: FUROSEMIDE 40 MG TABLET PO SCH (09:35)
[2018-12-01] MEDS: ASPIRIN EC 325 MG TABLET PO SCH (09:35)
[2018-12-01] MEDS: EZETIMIBE 10 MG TABLET PO SCH (09:35)
[2018-12-01] MEDS: PANTOPRAZOLE 40 MG TABLET PO SCH (09:35)
[2018-12-01] MEDS: CARVEDILOL 6.25 MG TABLET PO SCH (09:35)
[2018-12-01] MEDS: ATORVASTATIN 20 MG TABLET PO SCH (09:35)
[2018-12-01 11:41] VITALS: BP 145/88
== END 2018-12-01 13:00 | disposition home or self-care (01) | DRG 603 ==
LOC: N.ED 10:36 → N.EDINP 12:33 → N.5E 16:16
PROVIDERS: ADMIT Internal Medicine; ATTEND Internal Medicine

== ENCOUNTER 2022-07-06 07:55 | Inpatient (IN) ==
[2022-07-06 08:19] LABS: Basophils # 0.1 10*3/uL (0.0-0.2); Basophils % 0.5 % (0.0-0.8); Eosinophils # 0.1 10*3/uL (0.0-0.87); Hematocrit 39.5 VOL% (42.0-52.0); Hemoglobin 12.7 GM/DL (14.0-18.0); Immature Granulocytes % 0.3 %; Immature Granulocytes Absolute 0.03 #; Lymphocytes # 1.1 10*3/uL (1.4-4.0); Lymphocytes % 12.3 % (21.2-54.2); Mean Corpuscular HGB Conc 32.2 GM/DL (32-36); Mean Corpuscular Volume 86.4 FL (87-102); Mean Platelet Volume 10.4 FL (9.6-12.0); Monocytes # 0.8 10*3/uL (0.11-0.8); Monocytes % 9.2 % (1.7-12.7); Neutrophils % 76.7 % (38.7-73.9); Platelet Count 169 T/CUMM (130-400); Red Blood Count 4.57 MC/CUMM (3.8-5.5); Red Cell Distribution Width 16.4 % (9.3-17.3); White Blood Count 9.2 T/CUMM (4-12)
[2022-07-06] MEDS ORDERED: NITROGLYCERIN 2% OINT 1 INCH/GM PACK TOP STA (08:30)
[2022-07-06] MEDS ORDERED: ASPIRIN 325 MG TABLET PO STA (08:30)
[2022-07-06] MEDS ORDERED: FUROSEMIDE 40 MG/4 ML VIAL IV STA (08:30)
[2022-07-06 08:38] LABS: Alanine Aminotransferase 36 U/L (16-61); Albumin 3.2 G/DL (3.4-5.0); Alkaline Phosphatase 96 U/L (45-117); Aspartate Amino Transferase 18 U/L (0-37); Blood Urea Nitrogen 22 MG/DL (7-18); Calcium 8.9 MG/DL (8.5-10.1); Carbon Dioxide 24 MMOL/L (21-32); Chloride 113 MMOL/L (98-107); Glucose 120 MG/DL (74-106); Potassium 4.2 MMOL/L (3.5-5.1); Sodium 143 MMOL/L (136-145); Total Protein 7.1 G/DL (6.4-8.2)
[2022-07-06] MEDS ORDERED: ONDANSETRON 4 MG/2 ML VIAL IV PRN (10:25)
[2022-07-06] MEDS ORDERED: ACETAMINOPHEN 325 MG TABLET PO PRN (10:25)
[2022-07-06] MEDS ORDERED: TAMSULOSIN 0.4 MG CAPSULE PO PRN (12:55)
[2022-07-06] MEDS ORDERED: hydrALAZINE 20 MG/1 ML VIAL IV PRN (13:29)
[2022-07-06] MEDS: FUROSEMIDE 40 MG/4 ML VIAL IV SCH (16:15)
[2022-07-06] MEDS ORDERED: SIMVASTATIN 20 MG TABLET PO SCH (21:00)
[2022-07-07 04:38] LABS: Basophils % 0.5 % (0.0-0.8); Eosinophils # 0.2 10*3/uL (0.0-0.87); Eosinophils % 2.3 % (0.00-10.9); Hematocrit 37.7 VOL% (42.0-52.0); Hemoglobin 11.8 GM/DL (14.0-18.0); Immature Granulocytes % 0.4 %; Immature Granulocytes Absolute 0.03 #; Lymphocytes # 1.2 10*3/uL (1.4-4.0); Mean Corpuscular HGB Conc 31.3 GM/DL (32-36); Mean Corpuscular Volume 87.7 FL (87-102); Mean Platelet Volume 10.7 FL (9.6-12.0); Monocytes # 0.9 10*3/uL (0.11-0.8); Monocytes % 10.6 % (1.7-12.7); Neutrophils % 72.2 % (38.7-73.9); Platelet Count 145 T/CUMM (130-400); Red Cell Distribution Width 16.3 % (9.3-17.3); White Blood Count 8.2 T/CUMM (4-12)
[2022-07-07 05:05] LABS: Calcium 8.7 MG/DL (8.5-10.1); Osmolality,Calculated 287.1 MOS/KG (273-304); VLDL Cholesterol 19.8 MG/DL
[2022-07-07] MEDS: FUROSEMIDE 40 MG/4 ML VIAL IV SCH (07:31)
[2022-07-07] MEDS ORDERED: methylPREDNISolone SOD SUC 40 MG/1 ML VIAL IV ONE (08:37)
[2022-07-07] MEDS: EZETIMIBE 10 MG TABLET PO SCH (08:41)
[2022-07-07] MEDS: PANTOPRAZOLE 40 MG TABLET PO SCH (08:41)
[2022-07-07] MEDS: ASPIRIN EC 81 MG TABLET PO SCH (08:41)
[2022-07-07] MEDS: CLOPIDOGREL 75 MG TABLET PO SCH (08:41)
[2022-07-07] MEDS ORDERED: ALBUTEROL/IPRATROPIUM 3 ML NEB RESP TX PRN (09:17)
[2022-07-07] MEDS: DEXAMETHASONE 4 MG/1 ML VIAL IV SCH ×2 (09:49→20:35)
[2022-07-07] MEDS: MONTELUKAST 10 MG TABLET PO SCH (09:50)
[2022-07-07] MEDS: DORNASE ALFA 2.5 MG/2.5 ML VIAL RESP TX SCH ×2 (10:08→19:13)
[2022-07-07] MEDS: cefTRIAXone 1,000 MG in SODIUM CHLORIDE 0.9% 100 ML IV SCH (10:11)
[2022-07-07 10:18] LABS: Arterial Base Excess iSTAT 1 MMOL/L (-2.5-2.5); Arterial O2 Saturation iSTAT 67 % (95-100); Arterial PCO2 iSTAT 55 MM HG (35-48); Arterial PO2 iSTAT 39 MM HG (80-95); Arterial Total CO2 iSTAT 30 MMO/L (23-27); Arterial pH iSTAT 7.314 (7.35-7.45)
[2022-07-07 10:35] LABS: Arterial Base Excess iSTAT 0 MMOL/L (-2.5-2.5); Arterial Bicarbonate iSTAT 26.6 MMOL/L (20-26); Arterial O2 Saturation iSTAT 97 % (95-100); Arterial PCO2 iSTAT 48 MM HG (35-48); Arterial PO2 iSTAT 96 MM HG (80-95); Arterial Total CO2 iSTAT 28 MMO/L (23-27); Arterial pH iSTAT 7.349 (7.35-7.45)
[2022-07-07] MEDS ORDERED: ALBUTEROL/IPRATROPIUM 3 ML NEB RESP TX SCH (11:00)
[2022-07-07] MEDS: ALUMINUM/MAGNES/SIMETH MAX STR 30 ML UDCUP PO SCH ×3 (12:39→20:35)
[2022-07-07] MEDS: ALBUTEROL/IPRATROPIUM 3 ML NEB RESP TX SCH ×2 (12:48→19:13)
[2022-07-07] MEDS: BENZONATATE 100 MG CAPSULE PO SCH ×2 (14:36→20:35)
[2022-07-08] MEDS: ALBUTEROL/IPRATROPIUM 3 ML NEB RESP TX SCH ×5 (00:10→19:02)
[2022-07-08 06:29] LABS: Basophils % 0.1 % (0.0-0.8); Hematocrit 38.7 VOL% (42.0-52.0); Hemoglobin 12.3 GM/DL (14.0-18.0); Immature Granulocytes % 0.4 %; Immature Granulocytes Absolute 0.05 #; Lymphocytes # 0.6 10*3/uL (1.4-4.0); Lymphocytes % 5.1 % (21.2-54.2); Mean Corpuscular HGB Conc 31.8 GM/DL (32-36); Mean Corpuscular Volume 87.2 FL (87-102); Mean Platelet Volume 10.7 FL (9.6-12.0); Monocytes # 0.5 10*3/uL (0.11-0.8); Monocytes % 4.1 % (1.7-12.7); Neutrophils % 90.3 % (38.7-73.9); Platelet Count 173 T/CUMM (130-400); Red Blood Count 4.44 MC/CUMM (3.8-5.5); White Blood Count 12.6 T/CUMM (4-12)
[2022-07-08 06:56] LABS: Osmolality,Calculated 289.4 MOS/KG (273-304); Potassium 4.2 MMOL/L (3.5-5.1)
[2022-07-08] MEDS: DORNASE ALFA 2.5 MG/2.5 ML VIAL RESP TX SCH ×2 (07:35→19:08)
[2022-07-08] MEDS ORDERED: FUROSEMIDE 40 MG/4 ML VIAL IV SCH (09:00)
[2022-07-08] MEDS ORDERED: DEXTROSE 10% 250 ML BAG IV PRN (09:20)
[2022-07-08] MEDS ORDERED: GLUCAGON 1 MG VIAL IM PRN (09:20)
[2022-07-08] MEDS: PANTOPRAZOLE 40 MG TABLET PO SCH (09:31)
[2022-07-08] MEDS: BENZONATATE 100 MG CAPSULE PO SCH ×3 (09:31→21:15)
[2022-07-08] MEDS: MONTELUKAST 10 MG TABLET PO SCH (09:31)
[2022-07-08] MEDS: DEXAMETHASONE 4 MG/1 ML VIAL IV SCH ×2 (09:32→21:15)
[2022-07-08] MEDS: EZETIMIBE 10 MG TABLET PO SCH (09:32)
[2022-07-08] MEDS: ASPIRIN EC 81 MG TABLET PO SCH (09:32)
[2022-07-08] MEDS: cefTRIAXone 1,000 MG in SODIUM CHLORIDE 0.9% 100 ML IV SCH (09:34)
[2022-07-08] MEDS: ALUMINUM/MAGNES/SIMETH MAX STR 30 ML UDCUP PO SCH ×4 (10:04→21:15)
[2022-07-08] MEDS: CLOPIDOGREL 75 MG TABLET PO SCH (10:07)
[2022-07-08] MEDS: INSULIN REGULAR 100 UNIT/ML SUBCUT SCH ×3 (12:19→21:14)
[2022-07-09] MEDS: ALBUTEROL/IPRATROPIUM 3 ML NEB RESP TX SCH ×4 (01:02→19:52)
[2022-07-09 07:27] LABS: Basophils % 0.1 % (0.0-0.8); Hematocrit 36.9 VOL% (42.0-52.0); Hemoglobin 11.7 GM/DL (14.0-18.0); Immature Granulocytes % 0.5 %; Immature Granulocytes Absolute 0.07 #; Lymphocytes # 0.5 10*3/uL (1.4-4.0); Lymphocytes % 3.6 % (21.2-54.2); Mean Corpuscular HGB Conc 31.7 GM/DL (32-36); Mean Corpuscular Volume 89.1 FL (87-102); Mean Platelet Volume 11.5 FL (9.6-12.0); Monocytes # 0.6 10*3/uL (0.11-0.8); Monocytes % 4.4 % (1.7-12.7); Neutrophils % 91.4 % (38.7-73.9); Platelet Count 169 T/CUMM (130-400); Red Blood Count 4.14 MC/CUMM (3.8-5.5); Red Cell Distribution Width 16.5 % (9.3-17.3); White Blood Count 13.4 T/CUMM (4-12)
[2022-07-09] MEDS ORDERED: BENZONATATE 100 MG CAPSULE PO ONE (07:30)
[2022-07-09] MEDS ORDERED: MEPERIDINE 50 MG/1 ML VIAL IM ONE (07:30)
[2022-07-09] MEDS ORDERED: diphenhydrAMINE 50 MG/1 ML VIAL IM ONE (07:30)
[2022-07-09 07:37] LABS: INR 0.9; PT Patient Result 9.9 SECS (10.1-12.1); Partial Thromboplastin Time 25.3 SECS (23.7-32.9)
[2022-07-09] MEDS: DORNASE ALFA 2.5 MG/2.5 ML VIAL RESP TX SCH ×2 (07:40→19:58)
[2022-07-09 07:53] LABS: Osmolality,Calculated 294.1 MOS/KG (273-304); Potassium 4.6 MMOL/L (3.5-5.1)
[2022-07-09 07:59] LABS: Lymphocytes 1 % (20-55); Total Cells Counted 100
[2022-07-09 08:00] LABS: Hypochromia Slight; Microcytosis 1+; Ovalocytes Slight; Platelet Estimate Adequate
[2022-07-09] MEDS ORDERED: LIDOCAINE 2% VISCOUS 100 ML BOTTLE SWISH/SPIT ONE (08:00)
[2022-07-09] MEDS ORDERED: LIDOCAINE 1% 20 ML VIAL MISC INJ ONE (08:00)
[2022-07-09] MEDS ORDERED: LIDOCAINE 2% 20 ML VIAL RESP TX ONE (08:00)
[2022-07-09] MEDS ORDERED: MIDAZOLAM 2 MG/2 ML VIAL ONE (08:19)
[2022-07-09] MEDS: INSULIN REGULAR 100 UNIT/ML SUBCUT SCH ×4 (12:15→21:25)
[2022-07-09] MEDS: ASPIRIN EC 81 MG TABLET PO SCH (12:16)
[2022-07-09] MEDS: FUROSEMIDE 40 MG TABLET PO SCH (12:16)
[2022-07-09] MEDS: ALUMINUM/MAGNES/SIMETH MAX STR 30 ML UDCUP PO SCH ×4 (12:16→21:26)
[2022-07-09] MEDS: PANTOPRAZOLE 40 MG TABLET PO SCH (12:17)
[2022-07-09] MEDS: MONTELUKAST 10 MG TABLET PO SCH (12:18)
[2022-07-09] MEDS: BENZONATATE 100 MG CAPSULE PO SCH ×3 (12:18→21:27)
[2022-07-09] MEDS: DEXAMETHASONE 4 MG/1 ML VIAL IV SCH ×2 (12:20→21:26)
[2022-07-09] MEDS: EZETIMIBE 10 MG TABLET PO SCH (12:20)
[2022-07-09] MEDS: cefTRIAXone 1,000 MG in SODIUM CHLORIDE 0.9% 100 ML IV SCH (12:36)
[2022-07-10] MEDS: ALBUTEROL/IPRATROPIUM 3 ML NEB RESP TX SCH ×4 (00:55→19:00)
[2022-07-10 05:09] LABS: Hematocrit 37.8 VOL% (42.0-52.0); Hemoglobin 11.8 GM/DL (14.0-18.0); Immature Granulocytes % 0.6 %; Immature Granulocytes Absolute 0.06 #; Lymphocytes # 0.5 10*3/uL (1.4-4.0); Lymphocytes % 5.1 % (21.2-54.2); Mean Corpuscular HGB Conc 31.2 GM/DL (32-36); Mean Corpuscular Volume 89.6 FL (87-102); Mean Platelet Volume 11.2 FL (9.6-12.0); Monocytes # 0.4 10*3/uL (0.11-0.8); Neutrophils % 90.3 % (38.7-73.9); Platelet Count 180 T/CUMM (130-400); Red Blood Count 4.22 MC/CUMM (3.8-5.5); Red Cell Distribution Width 16.6 % (9.3-17.3)
[2022-07-10 05:47] LABS: Calcium 8.8 MG/DL (8.5-10.1); Osmolality,Calculated 296.1 MOS/KG (273-304); Potassium 4.6 MMOL/L (3.5-5.1)
[2022-07-10] MEDS: DORNASE ALFA 2.5 MG/2.5 ML VIAL RESP TX SCH ×2 (07:52→19:00)
[2022-07-10] MEDS: INSULIN REGULAR 100 UNIT/ML SUBCUT SCH ×4 (10:28→22:43)
[2022-07-10] MEDS: MONTELUKAST 10 MG TABLET PO SCH (10:29)
[2022-07-10] MEDS: ALUMINUM/MAGNES/SIMETH MAX STR 30 ML UDCUP PO SCH (10:29)
[2022-07-10] MEDS: PANTOPRAZOLE 40 MG TABLET PO SCH (10:29)
[2022-07-10] MEDS: FUROSEMIDE 40 MG TABLET PO SCH (10:29)
[2022-07-10] MEDS: BENZONATATE 100 MG CAPSULE PO SCH ×3 (10:29→22:00)
[2022-07-10] MEDS: ASPIRIN EC 81 MG TABLET PO SCH (10:29)
[2022-07-10] MEDS: EZETIMIBE 10 MG TABLET PO SCH (10:30)
[2022-07-10] MEDS: cefTRIAXone 1,000 MG in SODIUM CHLORIDE 0.9% 100 ML IV SCH (10:30)
[2022-07-10] MEDS: DEXAMETHASONE 4 MG/1 ML VIAL IV SCH ×2 (10:30→22:00)
[2022-07-11] MEDS: ALBUTEROL/IPRATROPIUM 3 ML NEB RESP TX SCH ×4 (00:27→18:57)
[2022-07-11 05:55] LABS: Basophils % 0.1 % (0.0-0.8); Hematocrit 37.6 VOL% (42.0-52.0); Hemoglobin 11.8 GM/DL (14.0-18.0); Immature Granulocytes % 1.3 %; Immature Granulocytes Absolute 0.12 #; Lymphocytes # 0.6 10*3/uL (1.4-4.0); Lymphocytes % 6.6 % (21.2-54.2); Mean Corpuscular HGB Conc 31.4 GM/DL (32-36); Mean Corpuscular Volume 88.7 FL (87-102); Mean Platelet Volume 11.2 FL (9.6-12.0); Monocytes # 0.6 10*3/uL (0.11-0.8); Platelet Count 171 T/CUMM (130-400); Red Blood Count 4.24 MC/CUMM (3.8-5.5); Red Cell Distribution Width 16.3 % (9.3-17.3); White Blood Count 9.2 T/CUMM (4-12)
[2022-07-11 06:13] LABS: Calcium 9.2 MG/DL (8.5-10.1); Osmolality,Calculated 291.3 MOS/KG (273-304); Potassium 4.7 MMOL/L (3.5-5.1)
[2022-07-11] MEDS: DORNASE ALFA 2.5 MG/2.5 ML VIAL RESP TX SCH ×2 (07:20→18:57)
[2022-07-11] MEDS: INSULIN REGULAR 100 UNIT/ML SUBCUT SCH ×4 (08:52→21:09)
[2022-07-11] MEDS: PANTOPRAZOLE 40 MG TABLET PO SCH (08:53)
[2022-07-11] MEDS: FUROSEMIDE 40 MG TABLET PO SCH (08:53)
[2022-07-11] MEDS: BENZONATATE 100 MG CAPSULE PO SCH ×3 (08:53→21:08)
[2022-07-11] MEDS: ASPIRIN EC 81 MG TABLET PO SCH (08:54)
[2022-07-11] MEDS: EZETIMIBE 10 MG TABLET PO SCH (08:54)
[2022-07-11] MEDS: DEXAMETHASONE 4 MG/1 ML VIAL IV SCH ×2 (08:54→21:09)
[2022-07-11] MEDS: MONTELUKAST 10 MG TABLET PO SCH (08:54)
[2022-07-11] MEDS: cefTRIAXone 1,000 MG in SODIUM CHLORIDE 0.9% 100 ML IV SCH (09:04)
[2022-07-11 13:41] LABS: M. Tuberculosis PCR Result Negative (Negative); M. Tuberculosis PCR Source SPUTUM
[2022-07-11] MEDS: ALUMINUM/MAGNES/SIMETH MAX STR 30 ML UDCUP PO SCH (21:35)
[2022-07-12] MEDS: ALBUTEROL/IPRATROPIUM 3 ML NEB RESP TX SCH ×4 (00:25→19:30)
[2022-07-12 04:53] LABS: Basophils % 0.1 % (0.0-0.8); Hematocrit 36.8 VOL% (42.0-52.0); Hemoglobin 11.6 GM/DL (14.0-18.0); Immature Granulocytes % 1.9 %; Lymphocytes # 0.6 10*3/uL (1.4-4.0); Lymphocytes % 5.7 % (21.2-54.2); Mean Corpuscular HGB Conc 31.5 GM/DL (32-36); Mean Corpuscular Volume 88.7 FL (87-102); Mean Platelet Volume 10.8 FL (9.6-12.0); Monocytes # 0.7 10*3/uL (0.11-0.8); Monocytes % 6.6 % (1.7-12.7); Neutrophils % 85.7 % (38.7-73.9); Platelet Count 179 T/CUMM (130-400); Red Blood Count 4.15 MC/CUMM (3.8-5.5); Red Cell Distribution Width 16.4 % (9.3-17.3); White Blood Count 10.3 T/CUMM (4-12)
[2022-07-12 05:12] LABS: Calcium 8.4 MG/DL (8.5-10.1); Osmolality,Calculated 289.4 MOS/KG (273-304); Potassium 4.4 MMOL/L (3.5-5.1)
[2022-07-12] MEDS: DORNASE ALFA 2.5 MG/2.5 ML VIAL RESP TX SCH ×2 (07:26→19:25)
[2022-07-12] MEDS: INSULIN REGULAR 100 UNIT/ML SUBCUT SCH ×4 (07:46→21:02)
[2022-07-12] MEDS: EZETIMIBE 10 MG TABLET PO SCH (09:27)
[2022-07-12] MEDS: BENZONATATE 100 MG CAPSULE PO SCH ×3 (09:27→21:02)
[2022-07-12] MEDS: PANTOPRAZOLE 40 MG TABLET PO SCH (09:28)
[2022-07-12] MEDS: ASPIRIN EC 81 MG TABLET PO SCH (09:28)
[2022-07-12] MEDS: FUROSEMIDE 40 MG TABLET PO SCH (09:28)
[2022-07-12] MEDS: MONTELUKAST 10 MG TABLET PO SCH (09:29)
[2022-07-12] MEDS: DEXAMETHASONE 4 MG/1 ML VIAL IV SCH ×2 (09:30→21:02)
[2022-07-12] MEDS ORDERED: guaiFENesin/CODEINE 5 ML LIQUID PO PRN (12:14)
[2022-07-12] MEDS: cefTRIAXone 1,000 MG in SODIUM CHLORIDE 0.9% 100 ML IV SCH (12:25)
[2022-07-12] MEDS: BUDESONIDE/FORMOTEROL 160-4.5 INHALER 6 GM INH SCH ×2 (13:13→21:02)
[2022-07-13] MEDS: ALBUTEROL/IPRATROPIUM 3 ML NEB RESP TX SCH ×3 (00:08→14:37)
[2022-07-13 05:13] LABS: Basophils % 0.1 % (0.0-0.8); Hemoglobin 11.7 GM/DL (14.0-18.0); Immature Granulocytes % 2.2 %; Immature Granulocytes Absolute 0.22 #; Lymphocytes # 0.5 10*3/uL (1.4-4.0); Lymphocytes % 5.3 % (21.2-54.2); Mean Corpuscular HGB Conc 31.6 GM/DL (32-36); Mean Corpuscular Volume 87.3 FL (87-102); Mean Platelet Volume 10.9 FL (9.6-12.0); Monocytes # 0.7 10*3/uL (0.11-0.8); Monocytes % 7.3 % (1.7-12.7); Neutrophils % 85.1 % (38.7-73.9); Platelet Count 192 T/CUMM (130-400); Red Blood Count 4.24 MC/CUMM (3.8-5.5); Red Cell Distribution Width 16.2 % (9.3-17.3); White Blood Count 10.2 T/CUMM (4-12)
[2022-07-13 05:25] LABS: Calcium 8.4 MG/DL (8.5-10.1); Osmolality,Calculated 289.5 MOS/KG (273-304); Potassium 4.3 MMOL/L (3.5-5.1)
[2022-07-13] MEDS: DORNASE ALFA 2.5 MG/2.5 ML VIAL RESP TX SCH (07:40)
[2022-07-13] MEDS ORDERED: ALBUTEROL/IPRATROPIUM 3 ML NEB RESP TX ONE (07:56)
[2022-07-13] MEDS: INSULIN REGULAR 100 UNIT/ML SUBCUT SCH ×2 (08:00→11:39)
[2022-07-13] MEDS ORDERED: LACTATED RINGERS 1,000 ML IV SCH (09:30)
[2022-07-13] MEDS: cefTRIAXone 1,000 MG in SODIUM CHLORIDE 0.9% 100 ML IV SCH (09:49)
[2022-07-13] MEDS: EZETIMIBE 10 MG TABLET PO SCH (09:50)
[2022-07-13] MEDS: ASPIRIN EC 81 MG TABLET PO SCH (09:50)
[2022-07-13] MEDS: PANTOPRAZOLE 40 MG TABLET PO SCH (09:50)
[2022-07-13] MEDS: BENZONATATE 100 MG CAPSULE PO SCH (09:50)
[2022-07-13] MEDS: MONTELUKAST 10 MG TABLET PO SCH (09:50)
[2022-07-13] MEDS: BUDESONIDE/FORMOTEROL 160-4.5 INHALER 6 GM INH SCH (09:51)
[2022-07-13] MEDS: DEXAMETHASONE 4 MG/1 ML VIAL IV SCH (09:55)
[2022-07-13] MEDS: FUROSEMIDE 40 MG TABLET PO SCH (09:55)
[2022-07-13] MEDS: CLOPIDOGREL 75 MG TABLET PO SCH ×3 (09:58→10:57)
[2022-07-13 11:38] VITALS: BP 136/72
== END 2022-07-13 15:22 | disposition home health service (06) | DRG 190 ==
LOC: N.EDINP 07:55 → N.ED 07:55 → N.2W 13:42 → N.TELES 07-11 16:52
PROVIDERS: ADMIT Internal Medicine Cardiovascular Disease; ATTEND Internal Medicine Cardiovascular Disease